=== PATIENT | male | born 1995 | race Caucasian/White ===

== ENCOUNTER 2019-02-28 07:21 | Emergency (ER) | payer MEDICAID ==
--- NOTE | 2019-02-28 07:54 | EDM.PDOC ---
ED HPI GENERAL MEDICAL PROBLEM - General Chief Complaint: Respiratory Problem Stated Complaint: CHEST HURTING Time Seen by Provider: 02/28/19 07:47 Source of Information: Reports: Patient History Limitations: Reports: No Limitations - History of Present Illness INITIAL COMMENTS - FREE TEXT/NARRATIVE: He is here with c/o shortness of breath. He has pain in midsternum. He started coughing Wednesday when he woke up. He was coughing up greenish tinted mucous. He reports he has been coughing up green when it is cold here. He was wheezing hard this morning and he started coughing in the shower and when he got out he felt like he couldn't breathe so he presented to ER. The shortness of breath is worse with activity. He feels weak and somewhat light-headed. He has not had any cold symptoms recently. He has had chills but is from [place] and it is cold here. He has been here about two weeks. 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 His mid chest hurts and to the left chest. This is worse with breathing and limits his inspiration. It is painful to touch. He has not done any new activities recently, fallen or had an injury Onset: Sudden Onset Date: 02/26/19 Duration: Constant, Getting Worse, Heavy Location: Reports: Chest Quality: Reports: Ache, Pressure Severity: Moderate Improves with: Reports: None Worsens with: Reports: Breathing (cold weather), Other (cold ), Movement Context: Reports: Activity Associated Symptoms: Reports: Chest Pain, Cough, cough w sputum, Shortness of Breath, Weakness, Other (shortness of breath) Treatments [employer]: Reports: NSAIDS Middle Chest Pain Score (Numeric/FACES): 6 - Related Data Allergies Allergy/AdvReac Type Severity Reaction Status Date / Time No Known Allergies Allergy Verified 02/28/19 07:34 Home Meds: Home Meds methylPREDNISolone [Medrol] 4 mg PO ASDIRECTED #1 dosepk 02/28/19 [Rx] Past Medical History - Past Health History Medical/Surgical History: Denies Medical/Surgical History HEENT History: Reports: Other (See Below) (tonsil infections) Cardiovascular History: Reports: None Respiratory History: Reports: None. Denies: Asthma, Bronchitis, Recurrent Social & Family History - Tobacco Use Smoking Status *Q: Current Every Day Smoker Years of Tobacco use: 4 Packs/Tins Daily: 0.5 Smoking Cessation Information Provided To Patient: No - Alcohol Use Alcohol Use History: Yes Days Per Week of Alcohol Use: 1 Number of Drinks Per Day: 4 Total Drinks Per Week: 4 Alcohol Use in Last Twelve Months: Yes - Recreational Drug Use Recreational Drug Use: Yes Drug Use in Last 12 Months: Yes Recreational Drug Type: Reports: Marijuana/Hashish Recreational Drug Use Frequency: Rarely - Living Situation & Occupation Living situation: Reports: Single ED ROS GENERAL - Review of Systems Review Of Systems: See Below Constitutional: Reports: Chills, Weakness, Fatigue HEENT: Reports: No Symptoms. Denies: Ear Pain, Sinus Problem, Throat Pain, Throat Swelling Respiratory: Reports: Shortness of Breath, Wheezing, Pleuritic Chest Pain, Cough , Sputum Cardiovascular: Reports: Chest Pain, Dyspnea on Exertion, Lightheadedness Endocrine: Reports: Fatigue GI/Abdominal: Reports: Vomiting (vomited X 1 after coughing) : Reports: No Symptoms Musculoskeletal: Reports: Leg Pain, Other (chest pain) Skin: Reports: No Symptoms Neurological: Reports: Weakness Psychiatric: Reports: No Symptoms Hematologic/Lymphatic: Reports: No Symptoms Immunologic: Reports: No Symptoms ED EXAM, GENERAL - Physical Exam Exam: See Below Exam Limited By: No Limitations General Appearance: Alert, Moderate Distress, Other (He is leaning over slightly ; breathing is somewhat shallow) Eye Exam: Bilateral Eye: Normal Inspection, PERRL Ears: Normal External Exam, Normal Canal, Hearing Grossly Normal, Normal TMs Ear Exam: Bilateral Ear: Auricle Normal, Canal Normal, TM normal Nose: Normal Inspection, Normal Mucosa Throat/Mouth: Normal Inspection, No Airway Compromise, Other (large tonsils bilaterally) Head: Atraumatic, Normocephalic. No: Facial Tenderness, Sinus Tenderness Neck: Normal Inspection, Supple, Non-Tender Respiratory/Chest: No Respiratory Distress, Wheezing (some coarse wheeze/ rhonchi heard best upper anterior chest). No: Chest Non-Tender Cardiovascular: Regular Rate, Rhythm, No Edema, No Murmur GI/Abdominal: Normal Bowel Sounds, Soft, Non-Tender, No Organomegaly (Male) Exam: Deferred Rectal (Males) Exam: Deferred Back Exam: Normal Inspection Extremities: Normal Inspection Neurological: Alert, Oriented, Normal Cognition, Normal Gait, Normal Reflexes Psychiatric: Normal Affect Skin Exam: Warm, Dry, Intact, Normal Color Lymphatic: No Adenopathy EKG INTERPRETATION EKG Date: 02/28/19 Time: 08:18 Rhythm: NSR Rate (Beats/Min): 64 QRS: RBBB Course - Vital Signs Text/Narrative:: His vital signs remained stable throughout his stay. His pain was unchanged as well as his shortness of breath but he did have some relief after the Toradol CXR normal; labs WNL I believe this is costochondritis with pleuritis. He was treated with toradol and solu medrol He wanted to discharge as he needed to go to work. Last Recorded V/S: Last Vital Signs Temp 97 F 02/28/19 07:21 Pulse 79 02/28/19 07:21 Resp 16 02/28/19 07:21 BP 126/71 02/28/19 07:21 Pulse Ox 100 02/28/19 07:21 - Orders/Labs/Meds Orders: Active Orders 24 hr Category Date Time Status EKG 12 Lead [EKG Documentation Completion] [RC] STAT Care 02/28/19 08:03 Active RT Aerosol Therapy [RC] ASDIRECTED Care 02/28/19 07:56 Active Labs: Laboratory Tests 02/28/19 02/28/19 02/28/19 Range/Units 08:11 08:11 08:11 WBC 5.2 (4.0-10.0) x10^3/uL RBC 5.24 (4.5-6.0) x10^6/uL Hgb 14.4 (14.0-18.0) g/dL Hct 42.8 (40.0-52.0) % MCV 81.7 (78.0-93.0) fL MCH 27.5 (26.0-32.0) pg MCHC 33.6 (32.0-36.0) g/dL RDW Coeff of Kaushal 13.4 (10.0-15.0) % Plt Count 271 (130-400) x10^3/uL Neut % (Auto) 53.0 (50.0-80.0) % Lymph % (Auto) 37.0 (25.0-50.0) % Alexander % (Auto) 8.1 (2.0-11.0) % Eos % (Auto) 1.5 (0.0-4.0) % Baso % (Auto) 0.4 (0.2-1.2) % ESR 7 (0-16) mm/hr D-Dimer, Quantitative 0.47 (<=0.58) mg/LFEU Sodium 144 (69-191) mmol/L Potassium 3.5 (1.5-9.9) mmol/L Chloride 103 (54-184) mmol/L Carbon Dioxide 30 (21-32) mmol/L Anion Gap 14.5 (10-20) mmol/L BUN 8 (7-18) mg/dL Creatinine 1.1 (0.70-1.30) mg/dL Est Cr Clr Drug Dosing 93.52 mL/min Estimated GFR (MDRD) > 60 Glucose 100 (74-106) mg/dL Calcium 9.0 (8.5-10.1) mg/dL Corrected Calcium 9.16 (8.5-10.1) mg/dL Total Bilirubin 0.4 (0.2-1.0) mg/dL AST 16 (15-37) U/L ALT 16 (16-63) U/L Alkaline Phosphatase 65 (46-116) U/L C-Reactive Protein 0.7 (<=0.9) mg/dL Total Protein 7.3 (6.4-8.2) g/dL Albumin 3.8 (3.4-5.0) g/dL Globulin 3.5 Albumin/Globulin Ratio 1.09 Meds: Medications Discontinued Medications Generic Name Dose Route Start Last Admin Trade Name Freq PRN Reason Stop Dose Admin Albuterol/Ipratropium 3 ml 02/28/19 07:56 02/28/19 07:58 Duoneb 3.0-0.5 Mg/3 Ml NEB 02/28/19 07:57 3 ml ONETIME ONE Administration Lactated Ringer's 1,000 mls @ 500 mls/hr 02/28/19 08:05 02/28/19 08:15 Ringers, Lactated IV 02/28/19 10:04 500 mls/hr ONETIME ONE Administration Ketorolac Tromethamine 30 mg 02/28/19 07:56 Toradol IM 02/28/19 07:57 ONETIME ONE Ketorolac Tromethamine 30 mg 02/28/19 08:28 02/28/19 08:15 Toradol IVPUSH 02/28/19 08:29 30 mg ONETIME ONE Administration Methylprednisolone Sodium Succinate 125 mg 02/28/19 08:58 Solu-Medrol IM 02/28/19 08:59 ONETIME ONE Methylprednisolone Sodium Succinate 125 mg 02/28/19 09:05 02/28/19 09:09 Solu-Medrol IVPUSH 02/28/19 09:06 125 mg ONETIME ONE Administration Sodium Chloride 10 ml 02/28/19 20:00 Saline Flush FLUSH BID KENYATTA Departure - Departure Time of Disposition: 09:35 Disposition: Home, Self-Care 01 Condition: Good Clinical Impression: Chest pain made worse by breathing, Shortness of breath on exertion - Discharge Information *PRESCRIPTION DRUG MONITORING PROGRAM REVIEWED*: Not Applicable *COPY OF PRESCRIPTION DRUG MONITORING REPORT IN PATIENT EVAN: Not Applicable Prescriptions: methylPREDNISolone [Medrol] 4 mg PO ASDIRECTED #1 dosepk Instructions: Steps to Quit Smoking, [id number], Acute Bronchitis, Adult, [id number], Pleurisy Referrals: PCP,Not In Area [Primary Care Provider] - Forms: ED Department Discharge Additional Instructions: Drink plenty of water. You can take ibuprofen for discomfort or pain. Take your medication until it is gone. Take with food. Instructions for this medication are on the package. Call ER if you have any questions. Return to ER if you have worsening of your symptoms or other severe symptoms develop. Follow up if you are not improved in the next 2-3 days in the clinic - Problem List & Annotations (1) Shortness of breath on exertion SNOMED Code(s): 85185334 Code(s): R06.02 - SHORTNESS OF BREATH Status: Acute Priority: High (2) Chest pain made worse by breathing SNOMED Code(s): 990120447 Code(s): R07.1 - CHEST PAIN ON BREATHING Status: Acute Priority: High - Problem List Review Problem List Initiated/Reviewed/Updated: Yes - My Orders Last 24 Hours: My Active Orders 02/28/19 07:56 RT Aerosol Therapy [RC] ASDIRECTED 02/28/19 08:03 EKG 12 Lead [EKG Documentation Completion] [RC] STAT - Assessment/Plan Last 24 Hours: My Active Orders 02/28/19 07:56 RT Aerosol Therapy [RC] ASDIRECTED 02/28/19 08:03 EKG 12 Lead [EKG Documentation Completion] [RC] STAT Plan: Follow up if symptoms worsen
[2019-02-28] MEDS ORDERED: Albuterol/Ipratropium 3.0-0.5 MG/3 ML Neb Soln NEB ONE (07:56)
[2019-02-28] MEDS ORDERED: Ketorolac 30 MG/ML SDV IM ONE (07:56)
[2019-02-28] MEDS ORDERED: Lactated Ringers 1,000 ML IV ONE (08:05)
[2019-02-28] MEDS ORDERED: Ketorolac 30 MG/ML SDV IVPUSH ONE (08:28)
[2019-02-28 08:43] LABS: CHLORIDE,CL 103 mmol/L (54-184); SODIUM,NA 144 mmol/L (69-191)
[2019-02-28 08:51] LABS: ANION GAP 14.5 mmol/L (10-20)
[2019-02-28] MEDS ORDERED: methylPREDNISolone Sodium Succinate 125 MG/2 ML SDV IM ONE (08:58)
[2019-02-28] MEDS ORDERED: methylPREDNISolone Sodium Succinate 125 MG/2 ML SDV IVPUSH ONE (09:05)
--- NOTE | 2019-02-28 09:50 | CR ---
[id number] RAD/RAD Chest PA And Lateral EXAM: RAD Chest PA And Lateral INDICATION: SHORTNESS OF BREATH. COMPARISON: None. DISCUSSION: Cardiomediastinal silhouette is normal in size and contour. No infiltrate, effusion, pneumothorax, or edema. IMPRESSION: Normal examination of the chest. Cristian Pappas MD 02/28/19 0949 Thank you for allowing us to participate in the care of your patient.
[2019-02-28] MEDS ORDERED: Sodium Chloride 0.9% 10 ML Syringe FLUSH SCH (20:00)
== END 2019-02-28 09:35 | disposition home or self-care (01) ==
LOC: VM.ED 07:21
DX: R07.1 Chest pain on breathing (principal); R06.02 Shortness of breath; F17.210 Nicotine dependence, cigarettes, uncomplicated
CPT/HCPCS: 36415; 71046; 80053; 85025; 85379; 85652; 86140; 87804; 93005; 93010; 94640; 96361; 96374; 96375; 99284; 99285; J1885; J2930; J7120; J7620-GY